=== PATIENT | female | born 1950 ===

== ENCOUNTER 2022-04-22 05:30 | Day surgery (SDC) | payer OTHER | END 2022-04-22 11:00 | disposition home or self-care (01) | LOC: CIR.AMB 05:30 | PROVIDERS: ATTEND Surgery Surgery of the Hand | DX: M65.841 Other synovitis and tenosynovitis, right hand (principal); Z20.822 Contact with and (suspected) exposure to COVID-19; I10 Essential (primary) hypertension; E78.00 Pure hypercholesterolemia, unspecified; E11.9 Type 2 diabetes mellitus without complications ==